=== PATIENT | male | born 1980 | race American Indian/Alaskan Native ===

== ENCOUNTER 2017-10-01 02:29 | Emergency (ER) | payer SELFPAY ==
[2017-10-01 02:37] VITALS: BP 109/76
[2017-10-01] MEDS ORDERED: MOTRIN ONE (04:19)
[2017-10-01] MEDS ORDERED: MOTRIN PO ONE (04:20)
[2017-10-01] MEDS ORDERED: BOOSTRIX IM ONE (05:40)
[2017-10-01] MEDS ORDERED: TYLENOL PO ONE (05:40)
[2017-10-01] MEDS ORDERED: XYLOCAINE 2% INFILTRATI ONE (05:40)
--- NOTE | 2017-10-01 05:43 | Emergency Department Report ---
- General Chief Complaint: Wound/Laceration Stated Complaint: LEFT FINGER LACERATION Time Seen by Provider: 10/01/17 05:07 Source: patient Mode of arrival: Ambulatory Limitations: No Limitations - History of Present Illness Initial Comments: 37-year-old male past medical history none presents with laceration to left hand /finger. Patient states she was handling a metal kitchen filter at work slip through his hand and cut his left middle finger. Visible horizontal laceration near DIP joint left middle finger. Patient is unsure of his tetanus status. Patient also incidentally states he has a lipoma and is requesting dermatology referral -: This afternoon Extremity Location: Left: Hand (left middle finger laceration) Place: work Patient Tetanus UTD: No Context: accidental Associated Symptoms: pain - Related Data Previous Rx's Medication Instructions Recorded Last Taken Type Cephalexin [Keflex] 500 mg PO Q12HR #10 cap 10/01/17 Unknown Rx Ibuprofen [Motrin] 600 mg PO Q8H PRN #20 tablet 10/01/17 Unknown Rx Neomy/Baci/Polymyx Oint [Triple 1 applicatio TP BID #1 oint 10/01/17 Unknown Rx Antibiotic] Allergies Allergy/AdvReac Type Severity Reaction Status Date / Time No Known Allergies Allergy Verified 10/01/17 02:37 ED Review of Systems ROS: Stated complaint: LEFT FINGER LACERATION Other details as noted in HPI Constitutional: denies: chills, fever Eyes: denies: eye pain, eye discharge, vision change ENT: denies: ear pain, throat pain Respiratory: denies: cough, shortness of breath, wheezing Cardiovascular: denies: chest pain, palpitations Endocrine: no symptoms reported Gastrointestinal: denies: abdominal pain, nausea, diarrhea Genitourinary: denies: urgency, dysuria Musculoskeletal: denies: back pain, joint swelling, arthralgia Skin: denies: rash, lesions Neurological: denies: headache, weakness, paresthesias Psychiatric: denies: anxiety, depression Hematological/Lymphatic: denies: easy bleeding, easy bruising ED Past Medical Hx - Past Medical History Previous Medical History?: No - Surgical History Past Surgical History?: Yes Additional Surgical History: right hand - Social History Smoking Status: Current Every Day Smoker Substance Use Type: None - Medications Home Medications: Home Medications Medication Instructions Recorded Confirmed Last Taken Type Cephalexin [Keflex] 500 mg PO Q12HR #10 cap 10/01/17 Unknown Rx Ibuprofen [Motrin] 600 mg PO Q8H PRN #20 tablet 10/01/17 Unknown Rx Neomy/Baci/Polymyx Oint [Triple 1 applicatio TP BID #1 oint 10/01/17 Unknown Rx Antibiotic] ED Physical Exam - General Limitations: No Limitations General appearance: alert, in no apparent distress - Head Head exam: Present: atraumatic, normocephalic - Eye Eye exam: Present: normal appearance, PERRL, EOMI Pupils: Present: normal accommodation - ENT ENT exam: Present: mucous membranes moist - Neck Neck exam: Present: normal inspection - Respiratory Respiratory exam: Present: normal lung sounds bilaterally. Absent: respiratory distress - Cardiovascular Cardiovascular Exam: Present: regular rate, normal rhythm. Absent: systolic murmur, diastolic murmur, rubs, gallop - GI/Abdominal GI/Abdominal exam: Present: soft, normal bowel sounds - Rectal Rectal exam: Present: deferred - Extremities Exam Extremities exam: Present: normal inspection - Expanded Upper Extremity Exam Left Shoulder Exam: Present: normal inspection, full ROM Upper Arm exam: Present: normal inspection, full ROM Elbow exam: Present: normal inspection, full ROM Forearm Wrist exam: Present: normal inspection, full ROM Hand Wrist exam: Present: tenderness, laceration Hand L/R Front: 1 - Positive: laceration (horizontal laceration here) Neuro motor exam: Present: wrist extension intact, thumb opposition intact, thumb IP flexion intact, thumb adduction intact, fingers 2-5 abduction intact Vascular: Present: normal capillary refill, radial pulse, brachial pulse, ulnar pulse - Back Exam Back exam: Present: normal inspection - Neurological Exam Neurological exam: Present: alert, oriented X3 - Psychiatric Psychiatric exam: Present: normal affect, normal mood - Skin Skin exam: Present: warm, dry, intact, normal color, other (lipoma left axilla, soft and nontender non-fluctuant nonerythematous approximately 3 cm in diameter) . Absent: rash ED Course Vital Signs 10/01/17 02:34 Temperature 98.5 F Pulse Rate 106 H Respiratory 18 Rate Blood Pressure 109/76 O2 Sat by Pulse 98 Oximetry - Laceration /Wound Repair Left Distal Finger Wound Location: upper extremity Wound Length (cm): 2 Wound's Depth, Shape: superficial, linear Irrigated w/ Saline (ccs): 1,000 Betadine Prep?: Yes Anesthesia: 1% Lidocaine Volume Anesthetic (ccs): 6 Wound Debrided: minimal Wound Repaired With: sutures Suture Size/Type: 4:0, nylon Number of Sutures: 5 Layer Closure?: No Sterile Dressing Applied?: Yes (triple antibiotic ointment with gauze) Progress: Digital block performed good anesthesia achieved. Minimal bleeding. Good wound closure achieved using nylon sutures ED Medical Decision Making - Medical Decision Making A/P: Left middle finger laceration 1- sutures to be removed in 7 days. pt given finger splint 2- tetanus updated today 3- Motrin when necessary, triple antibiotic ointment, short course Keflex 4- pt advised to return to the ED for any fevers chills pus drainage erythema at site of laceration Critical care attestation.: If time is entered above; I have spent that time in minutes in the direct care of this critically ill patient, excluding procedure time. ED Disposition Clinical Impression: Lipoma of axilla Laceration of left middle finger Qualifiers: Encounter type: initial encounter Damage to nail status: without damage Foreign body presence: without foreign body Qualified Code(s): S61.213A - Laceration without foreign body of left middle finger without damage to nail, initial encounter Disposition: TO HOME OR SELFCARE Is pt being admited?: No Does the pt Need Aspirin: No Condition: Stable Instructions: Suture Care (ED), Laceration (ED), Finger Laceration (ED), Lipoma (ED) Additional Instructions: Sutures to be removed in approximately 7 days Prescriptions: Cephalexin [Keflex] 500 mg PO Q12HR #10 cap Ibuprofen [Motrin] 600 mg PO Q8H PRN #20 tablet PRN Reason: Pain Neomy/Baci/Polymyx Oint [Triple Antibiotic] 1 applicatio TP BID #1 oint Referrals: [facility] [Outside] - 3-5 Days [facility] [Provider Group] - 3-5 Days Forms: Work/School Release Form(ED) Time of Disposition: 06:51
[2017-10-01] MEDS ORDERED: XYLOCAINE 1% 20 mL ONE (05:46)
[2017-10-01] MEDS ORDERED: XYLOCAINE 1% 20 mL INFILTRATI ONE (06:20)
[2017-10-01] MEDS ORDERED: TRIPLE ANTIBIOTIC TP ONE ×2 (07:09)
== END 2017-10-01 07:19 | disposition home or self-care (01) ==
LOC: ED 02:29
DX: S61.213A Laceration without foreign body of left middle finger without damage to nail, initial encounter (principal); D17.79 Benign lipomatous neoplasm of other sites; F17.200 Nicotine dependence, unspecified, uncomplicated; W45.8XXA Other foreign body or object entering through skin, initial encounter; Y93.89 Activity, other specified; Y99.0 Civilian activity done for income or pay; Y92.69 Other specified industrial and construction area as the place of occurrence of the external cause
CPT/HCPCS: 90471; 90715; A6250

== ENCOUNTER 2018-08-07 01:07 | Emergency (ER) | payer SELFPAY ==
[2018-08-07 01:17] VITALS: BP 108/74
[2018-08-07] MEDS ORDERED: IBUPROFEN PO ONE (02:59)
[2018-08-07] MEDS ORDERED: PERCOCET 5/325 PO ONE (03:00)
[2018-08-07] MEDS ORDERED: TRIMOX PO ONE (03:00)
--- NOTE | 2018-08-07 03:01 | Emergency Department Report ---
ED ENT HPI - General Chief complaint: Dental/Oral Stated complaint: ABSCESS ROOF OF MOUTH/EARACHE Time Seen by Provider: 08/07/18 02:51 Source: patient Mode of arrival: Ambulatory Limitations: No Limitations - History of Present Illness Initial comments: 38-year-old -[place] male presents to the emergency room for tooth abscess pain for 2 days raise his pain a 10 out of 10. Patient reports is aware that he has some bad teeth in his mouth. Complains of right sided tooth pain has been taken ibuprofen and Goody powders with no resolution of pain. Denies any nausea vomiting no fever no chills. MD complaint: tooth pain -: days(s) (2) Location: tooth # (1,2 and 3) Severity: severe Severity scale (0 -10): 10 Quality: stabbing, aching, sharp Consistency: constant Improves with: none Worsens with: eating Context- Dental: history of dental caries, poor dental care Associated Symptoms: gum swelling - Related Data Previous Rx's Medication Instructions Recorded Last Taken Type Ibuprofen [Motrin] 600 mg PO Q8H PRN #20 tablet 10/01/17 Unknown Rx Neomy/Baci/Polymyx Oint [Triple 1 applicatio TP BID #1 oint 10/01/17 Unknown Rx Antibiotic] cephALEXin [Keflex] 500 mg PO Q12HR #10 cap 10/01/17 Unknown Rx Amoxicillin [Amoxicillin TAB] 875 mg PO BID 10 Days #20 tablet 08/07/18 Unknown Rx Ibuprofen [Motrin 600 MG tab] 600 mg PO Q8H #24 tablet 08/07/18 Unknown Rx traMADol [Ultram 50 MG tab] 50 mg PO Q6HR PRN #12 tablet 08/07/18 Unknown Rx Allergies Allergy/AdvReac Type Severity Reaction Status Date / Time No Known Allergies Allergy Verified 10/01/17 02:37 ED Dental HPI - General Chief complaint: Dental/Oral Stated complaint: ABSCESS ROOF OF MOUTH/EARACHE Time Seen by Provider: 08/07/18 02:51 Source: patient Mode of arrival: Ambulatory Limitations: No Limitations - Related Data Previous Rx's Medication Instructions Recorded Last Taken Type Ibuprofen [Motrin] 600 mg PO Q8H PRN #20 tablet 10/01/17 Unknown Rx Neomy/Baci/Polymyx Oint [Triple 1 applicatio TP BID #1 oint 10/01/17 Unknown Rx Antibiotic] cephALEXin [Keflex] 500 mg PO Q12HR #10 cap 10/01/17 Unknown Rx Amoxicillin [Amoxicillin TAB] 875 mg PO BID 10 Days #20 tablet 08/07/18 Unknown Rx Ibuprofen [Motrin 600 MG tab] 600 mg PO Q8H #24 tablet 08/07/18 Unknown Rx traMADol [Ultram 50 MG tab] 50 mg PO Q6HR PRN #12 tablet 08/07/18 Unknown Rx Allergies Allergy/AdvReac Type Severity Reaction Status Date / Time No Known Allergies Allergy Verified 10/01/17 02:37 ED Review of Systems ROS: Stated complaint: ABSCESS ROOF OF MOUTH/EARACHE Other details as noted in HPI Comment: All other systems reviewed and negative ENT: dental pain ED Past Medical Hx - Past Medical History Previous Medical History?: No - Surgical History Past Surgical History?: Yes Additional Surgical History: right hand - Social History Smoking Status: Never Smoker Substance Use Type: None - Medications Home Medications: Home Medications Medication Instructions Recorded Confirmed Last Taken Type Ibuprofen [Motrin] 600 mg PO Q8H PRN #20 tablet 10/01/17 Unknown Rx Neomy/Baci/Polymyx Oint [Triple 1 applicatio TP BID #1 oint 10/01/17 Unknown Rx Antibiotic] cephALEXin [Keflex] 500 mg PO Q12HR #10 cap 10/01/17 Unknown Rx Amoxicillin [Amoxicillin TAB] 875 mg PO BID 10 Days #20 tablet 08/07/18 Unknown Rx Ibuprofen [Motrin 600 MG tab] 600 mg PO Q8H #24 tablet 08/07/18 Unknown Rx traMADol [Ultram 50 MG tab] 50 mg PO Q6HR PRN #12 tablet 08/07/18 Unknown Rx ED Physical Exam - General Limitations: No Limitations General appearance: alert, in no apparent distress - Head Head exam: Present: atraumatic, normocephalic - Eye Eye exam: Present: EOMI - Expanded ENT Exam Expanded Teeth exam: Present: dental caries, dental tenderness # (teeth are decayed down to the gumline.1,2 and 3), gingival enlargement, other - Respiratory Respiratory exam: Present: normal lung sounds bilaterally. Absent: respiratory distress - Cardiovascular Cardiovascular Exam: Present: regular rate, normal rhythm. Absent: systolic murmur, diastolic murmur, rubs, gallop - Neurological Exam Neurological exam: Present: alert, oriented X3 - Psychiatric Psychiatric exam: Present: normal affect, normal mood - Skin Skin exam: Present: warm, dry, intact, normal color. Absent: rash ED Course Vital Signs 08/07/18 01:15 Temperature 97.7 F Pulse Rate 100 H Respiratory 18 Rate Blood Pressure 108/74 O2 Sat by Pulse 97 Oximetry ED Medical Decision Making - Medical Decision Making Patient has been evaluated by this provider in fast track. Patient was given ibuprofen and 2 Percocet for pain management patient was given his first dose of amoxicillin 1000 mg. Patient will be discharged home with a prescription for ibuprofen and tramadol and amoxicillin. Referral given to patient to follow up with the dentist. Critical care attestation.: If time is entered above; I have spent that time in minutes in the direct care of this critically ill patient, excluding procedure time. ED Disposition Clinical Impression: Dental abscess Disposition: TO HOME OR SELFCARE Is pt being admited?: No Does the pt Need Aspirin: No Condition: Stable Instructions: Dental Abscess (ED) Additional Instructions: Complete antibiotics as prescribed. Take pain medication as needed. It is very important for her to follow up with the dentist I have listed several below for your convenience. Prescriptions: Amoxicillin [Amoxicillin TAB] 875 mg PO BID 10 Days #20 tablet Ibuprofen [Motrin 600 MG tab] 600 mg PO Q8H #24 tablet traMADol [Ultram 50 MG tab] 50 mg PO Q6HR PRN #12 tablet PRN Reason: Pain Referrals: PRIMARY CARE, [Primary Care Provider] - 3-[address] [facility] [Outside] - 3-5 Days [facility] [Outside] - 3-5 Days Forms: Work/School Release Form(ED)
== END 2018-08-07 03:51 | disposition home or self-care (01) ==
LOC: ED 01:07
DX: K04.7 Periapical abscess without sinus (principal)
CPT/HCPCS: 99282